=== PATIENT | male | born 2000 | race African-American/Black ===

== ENCOUNTER 2020-09-06 21:59 | Emergency (ER) | payer OTHER ==
[~2020-09-06] VITALS: Ht 177.8 cm; Wt 61.2 kg
[2020-09-06] MEDS ORDERED: PREDNISONE 20 M20 MG PO (23:02)
[2020-09-06] MEDS ORDERED: ALBUTEROL2.5 MG/0.1 INH (23:02)
[2020-09-06 23:17] VITALS: BP 107/63
== END 2020-09-06 23:37 | disposition home or self-care (01) ==
LOC: ER 21:59
DX: J06.9 Acute upper respiratory infection, unspecified (principal); J45.901 Unspecified asthma with (acute) exacerbation; Z91.013 Allergy to seafood; Z20.822 Contact with and (suspected) exposure to COVID-19

== ENCOUNTER 2020-12-07 09:10 | Emergency (ER) | payer OTHER ==
[~2020-12-07] VITALS: Ht 177.8 cm; Wt 61.2 kg
[~2020-12-07 09:10] MED LIST: ALBUTEROL2.5 MG/0.1 INH; PREDNISONE 20 M20 MG PO
[2020-12-07] MEDS ORDERED: PROAIR HFA8.5 GM INH (11:07)
[2020-12-07] MEDS ORDERED: PREDNISONE 20 M20 MG PO (11:07)
[2020-12-07 11:27] VITALS: BP 118/71
== END 2020-12-07 11:29 | disposition home or self-care (01) ==
LOC: ER 09:10
DX: J45.901 Unspecified asthma with (acute) exacerbation (principal); Z91.013 Allergy to seafood